=== PATIENT | female | born 1990 | race African-American/Black ===

== ENCOUNTER 2017-05-13 13:44 | Emergency (ER) | payer BC | END 2017-05-13 14:14 | disposition home or self-care (01) | LOC: ERS 13:44 | DX: S81.811D Laceration without foreign body, right lower leg, subsequent encounter (principal) ==

== ENCOUNTER 2018-07-27 18:54 | Emergency (ER) | payer BC ==
[2018-07-27 19:27] LABS: Pregnancy Test - Urine (BHCG) Negative (Negative); Pregu Control Background? CLEAR/WHITE (CLR/WHITE); Pregu Control Bar Appear? YES (CONTROL BAR)
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
== END 2018-07-27 20:06 | disposition home or self-care (01) ==
LOC: ERS 18:54
DX: M54.5 Low back pain (principal); V43.52XA Car driver injured in collision with other type car in traffic accident, initial encounter
CPT/HCPCS: 72100; 81025

== ENCOUNTER 2018-11-11 21:23 | Emergency (ER) | payer BC, OTHER ==
[2018-11-11 23:33] LABS: Bilirubin Negative (Negative); Blood, Urine Trace (Negative); Clarity CLEAR (Clear); Glucose, Urine (Dipstick) Negative (Negative); Leukocyte Negative (Negative); Nitrite Negative (Negative); Protein, Urine (Dipstick) Negative (Neg-Trace); Specific Gravity, Urine 1.025 (1.002-1.036); pH, Urine 5.5 (5.0-9.0)
[2018-11-11 23:34] LABS: Pregnancy Test - Urine (BHCG) Negative (Negative); Pregu Control Background? CLEAR/WHITE (CLR/WHITE); Pregu Control Bar Appear? YES (CONTROL BAR); Specific Gravity 1.025 (1.002-1.036)
[2018-11-11 23:36] LABS: Bacteria/HPF None Seen HPF (None Seen); Hyaline Casts/LPF 0-3 HYALINE CAST LPF (0-3 Hyaline); Squamous Epithelial 0-3 HPF (0-3)
[2018-11-16 00:14] LABS: Chlamydia by PCR Not Detected (NotDetected); GC by PCR Not Detected (NotDetected)
== END 2018-11-12 | disposition home or self-care (01) ==
LOC: ERS 21:23
DX: N90.89 Other specified noninflammatory disorders of vulva and perineum (principal)
CPT/HCPCS: 81003; 81015; 81025; 87086; 87252; 87480; 87491; 87510; 87591; 87660; 99283

== ENCOUNTER 2019-01-28 14:56 | Emergency (ER) | payer BC ==
[2019-01-28 15:30] LABS: #Basophils 0.1 thou/uL (0.0-0.2); #Lymphocytes 2.6 thou/uL (1.20-3.40); #Monocytes 0.7 thou/uL (0.11-0.59); #Neutrophils 3.8 thou/uL (1.40-6.50); %Basophils 0.7 % (0.0-1.0); %Eosinophils 0.1 % (0.0-10.0); %Lymphocytes 36.1 % (21.0-51.0); %Monocytes 9.9 % (0.0-10.0); %Neutrophils 53.2 % (42.0-75.0); Hemoglobin 12.6 g/dL (12.0-16.0); Mean Corpuscular HGB CONC 33.5 g/dL (32.0-36.0); Mean Corpuscular Hemoglobin 30.7 pg (27.0-31.0); Mean Corpuscular Volume 91.7 fL (78.0-98.0); Mean Platelet Volume 7.2 fL (7.4-10.4); Platelet Count 283 thou/uL (130-400); RBC Distribution Width 12.2 % (11.5-14.5); White Blood Cell (WBC) Count 7.2 thou/uL (4.8-10.8)
[2019-01-28 16:06] LABS: Bacteria/HPF None Seen HPF (None Seen); Bilirubin Negative (Negative); Blood, Urine 3+ (Negative); Clarity Clear (Clear); Glucose, Urine (Dipstick) Normal (Negative); Leukocyte 25 Leu/uL (Negative); Nitrite Negative (Negative); Protein, Urine (Dipstick) 30 mg/dL (Neg-Trace); RBC/HPF Greater than 50 HPF (0-3); Squamous Epithelial 0-3 HPF (0-3); Urobilinogen 6 mg/dL (Less than 2)
--- NOTE | 2019-01-28 16:28 | ULT ---
Pelvic sonogram transabdominal and transvaginal imaging HISTORY: Early . Pain and bleeding. FINDINGS: Urinary bladder is decompressed. Uterus has a heterogeneous echotexture and measures up to 3.4 cm. Endometrium is 0.9 cm. No gestational sac is apparent. Small amount of fluid within the lower uterine segment and cervical canal. No free fluid within the pelvis. Right ovary is 5.7 cm with good color and spectral Doppler flow. An eccentric lobulation is 1.4 cm. F avored not to be an ectopic . Possible corpus luteum. Left ovary is 4.7 cm. Good color and spectral Doppler flow. IMPRESSION: No sonographic evidence of intrauterine gestation. Please consider close sonographic foll ow-up regarding the possibility of early versus spontaneous versus ectopic is required
== END 2019-01-28 18:30 | disposition home or self-care (01) ==
LOC: ERS 14:56
DX: O20.9 Hemorrhage in early pregnancy, unspecified (principal); Z3A.01 Less than 8 weeks gestation of pregnancy
CPT/HCPCS: 36415; 76856; 81003; 81015; 84702; 85025; 86900; 86901; 90384; 96372

== ENCOUNTER 2019-12-12 10:14 | Emergency (ER) | payer BC ==
[2019-12-12 11:10] LABS: #Basophils 0.1 thou/uL (0.0-0.2); #Monocytes 0.6 thou/uL (0.11-0.59); #Neutrophils 5.3 thou/uL (1.40-6.50); %Basophils 0.8 % (0.0-1.0); %Eosinophils 0.6 % (0.0-10.0); %Lymphocytes 24.8 % (21.0-51.0); %Monocytes 7.5 % (0.0-10.0); %Neutrophils 66.3 % (42.0-75.0); Hemoglobin 12.3 g/dL (12.0-16.0); Mean Corpuscular HGB CONC 34.1 g/dL (32.0-36.0); Mean Corpuscular Hemoglobin 31.9 pg (27.0-31.0); Mean Corpuscular Volume 93.5 fL (78.0-98.0); Mean Platelet Volume 7.4 fL (7.4-10.4); Platelet Count 271 thou/uL (130-400); RBC Distribution Width 13.1 % (11.5-14.5); Red Blood Cell (RBC) Count 3.85 mill/uL (4.20-5.40)
[2019-12-12 11:33] LABS: Bilirubin Negative (Negative); Blood, Urine 2+ (Negative); Clarity Clear (Clear); Glucose, Urine (Dipstick) Normal (Negative); Leukocyte Negative Leu/uL (Negative); Nitrite Negative (Negative); Protein, Urine (Dipstick) Negative (Neg-Trace); Squamous Epithelial 0-3 HPF (0-3); Urobilinogen Normal mg/dL (Less than 2); WBC/HPF 0-3 HPF (0-3)
[2019-12-12 11:45] LABS: Bacteria/HPF 1+ HPF (None Seen)
--- NOTE | 2019-12-12 12:06 | ULT ---
TRANSVAGINAL PELVIC ULTRASOUND WITH DOPPLER: Date: 12/12/2019 PROVIDED CLINICAL HISTORY: Vaginal bleeding. FINDINGS: Comparison made with study dated 01/28/2019. The uterus measures about 7.6 x 4.5 x 3.7 cm and demonstrates a normal appearance to the uterine endo metrium and myometrium. Endometrial thickness is about 5.0 mm. Right ovary measures about 6.5 x 3.5 x 3.3 cm and appears sonographically normal. Left ovary measures about 5.1 x 3.1 x 2.5 cm and demonstrates an unremarkable sonographic appearance. Color Doppler and spectral analysis of the ovarian waveforms demonstrates normal flow bilaterally. There is mild simple appearing free pelvic fluid. IMPRESSION: 1. Bilateral ovarian enlargement with normal flow demonstrated. 2. Mild free pelvic fluid. POS: [facility]
[2019-12-12 14:22] LABS: Medtox Reader # READER 4
[2019-12-12 14:23] LABS: Amphetamine Not Detected (NotDetected); Barbiturates Screen Not Detected (NotDetected); Benzodiazepine Screen Detected (NotDetected); Cocaine Metabolite Screen Not Detected (NotDetected); Medtox Control Line Valid? VALID (VALID); Methadone Not Detected (NotDetected); Methamphetamine Not Detected (NotDetected); Opiate Screen Not Detected (NotDetected); Oxycodone Screen Not Detected (NotDetected); Phencyclidine (PCP) Not Detected (NotDetected); THC/Cannabinoid Screen Detected (NotDetected); Tricyclic Screen Not Detected (NotDetected)
[2019-12-12 23:28] LABS: Chlamydia by PCR Not Detected (NotDetected); GC by PCR DETECTED (NotDetected)
== END 2019-12-12 12:13 | disposition home or self-care (01) ==
LOC: ERS 10:14
DX: N93.9 Abnormal uterine and vaginal bleeding, unspecified (principal); F41.9 Anxiety disorder, unspecified; F32.9 Major depressive disorder, single episode, unspecified; Z79.899 Other long term (current) drug therapy
CPT/HCPCS: 36415; 76856; 80306; 81003; 81015; 84702; 85025; 87480; 87491; 87510; 87591; 87660

== ENCOUNTER 2019-12-15 19:03 | Emergency (ER) | payer BC ==
[2019-12-15] MEDS ORDERED: Lidocaine 1% PF 5 ML VIAL ONE (20:05)
[2019-12-15] MEDS ORDERED: cefTRIAXone\\ROCEPHIN 250 MG VIAL ONE (20:05)
[2019-12-15] MEDS ORDERED: Azithromycin 250 MG TAB ONE (20:05)
== END 2019-12-15 20:45 | disposition home or self-care (01) ==
LOC: ERS 19:03
DX: A54.02 Gonococcal vulvovaginitis, unspecified (principal); N76.0 Acute vaginitis; D50.9 Iron deficiency anemia, unspecified; F41.9 Anxiety disorder, unspecified; F32.9 Major depressive disorder, single episode, unspecified
CPT/HCPCS: 96372; 99283; J0696; J2001

== ENCOUNTER 2021-04-06 10:10 | Outpatient (CLI) | payer OTHER ==
[2021-04-06 11:18] LABS: BHCG - Serum Negative (NEGATIVE); Pregs Control Background? CLEAR/WHITE (CLR/WHITE); Pregs Control Bar Appear? YES (CONTROL BAR)
== END 2021-04-06 10:11 | disposition home or self-care (01) ==
LOC: RAD 10:10
PROVIDERS: ATTEND Obstetrics & Gynecology
DX: Z32.00 Encounter for pregnancy test, result unknown (principal); Z90.79 Acquired absence of other genital organ(s)
CPT/HCPCS: 36415; 58340; 74740; 84703